=== PATIENT | male | born 1965 | race American Indian/Alaskan Native ===

== ENCOUNTER 2017-06-06 11:24 | Day surgery (SDC) | payer MEDICARE, OTHER ==
[~2017-06-06 11:24] MED LIST: FLAGYL 500 MG/100 ML 500 MG/100 ML BAG IV SCH; OMNIPAQUE 300 MG/50 ML (CATH LAB) IV ONE; WATER FOR IRRIG STERILE IR ONE
--- NOTE | 2017-06-06 12:57 | Anesthesia Day of Surgery ---
Anesthesia Day of Surgery - Day of Surgery Patient Examined: Yes Patient H&P Reviewed: Yes Patient is NPO: Yes
--- NOTE | 2017-06-06 12:57 | Anesthesia Consultation ---
Anesthesia Consult and Med Hx Date of service: 06/06/17 - Airway Anesthetic Teeth Evaluation: Good ROM Head & Neck: Adequate Mental/Hyoid Distance: Adequate Mallampati Class: Class II Intubation Access Assessment: Probably Good - Pulmonary Exam CTA: Yes - Cardiac Exam Cardiac Exam: RRR - Pre-Operative Health Status ASA Pre-Surgery Classification: ASA2 Proposed Anesthetic Plan: General - Pulmonary Hx Smoking: No Hx Sleep Apnea: Yes (DX SLEEP APNEA WITH CPAP USE.) - Cardiovascular System Hx Hypertension: No - Central Nervous System Hx Back Pain: Yes (on pain meds) Hx Psychiatric Problems: Yes (PTSD) - Endocrine Hx Renal Disease: No Hx Liver Disease: No Hx Non-Insulin Dependent Diabetes: No - Hematic Hx Anemia: No Hx Sickle Cell Disease: No - Other Systems Hx Cancer: No Hx Obesity: Yes - Additional Comments Anesthesia Medical History Comments: NAC
[2017-06-06] MEDS ORDERED: LACTATED RINGERS 1,000 ML IV SCH (13:00)
[2017-06-06] MEDS ORDERED: PEPCID PO NR (13:00)
[2017-06-06] MEDS ORDERED: VERSED IV NR (13:00)
[2017-06-06] MEDS ORDERED: XYLOCAINE MPF 2% ONE (14:00)
[2017-06-06] MEDS ORDERED: NEO SYNEPHRINE/NS Syringe(OR USE) IV ONE (14:00)
[2017-06-06] MEDS ORDERED: SUBLIMAZE ONE (14:05)
[2017-06-06] MEDS ORDERED: DIPRIVAN 10 MG/ML IV ONE (14:06)
[2017-06-06] MEDS ORDERED: PROAIR IH ONE (14:20)
[2017-06-06] MEDS ORDERED: ZOFRAN ONE (14:22)
[2017-06-06] MEDS ORDERED: DECADRON ONE (14:22)
[2017-06-06] MEDS ORDERED: WATER FOR IRRIG STERILE IR ONE (14:26)
[2017-06-06] MEDS ORDERED: OMNIPAQUE 300 MG/50 ML (CATH LAB) IV ONE (14:31)
[2017-06-06] MEDS ORDERED: ROBINUL ONE (14:34)
--- NOTE | 2017-06-06 14:46 | Short Stay Summary ---
Short Stay Documentation Date of service: 06/06/17 - History H&P: obtained from office - Allergies and Medications Current Medications: Allergies amoxicillin Allergy (Verified 06/01/17 13:16) Vomiting Home Medications Medication Instructions Recorded Confirmed Last Taken Type Aspirin/Acetaminophen/Caffeine 1 dose PO PRN PRN 06/01/17 06/01/17 Unknown History [[employer] Ex-Str Powder Packet] Gabapentin [Neurontin] 300 mg PO BID 06/01/17 06/01/17 Unknown History Meloxicam [Mobic] 15 mg PO DAILY 06/01/17 06/01/17 Unknown History oxyCODONE /ACETAMINOPHEN [Percocet 1 tab PO Q6HR PRN 06/01/17 06/01/17 Unknown History 5/325] Active Medications Famotidine (Pepcid) 20 mg PO PREOP NR Stop: 06/06/17 23:59 Last Admin: 06/06/17 13:30 Dose: 20 mg Metronidazole (Flagyl 500 Mg/100 Ml) 500 mg in 100 mls @ 100 mls/hr IV PREOP PATIENCE Stop: 06/06/17 15:00 Lactated Ringer's (Lactated Ringers) 1,000 mls @ 100 mls/hr IV DIRECT PATIENCE Last Admin: 06/06/17 13:30 Dose: 100 mls/hr Midazolam HCl (Versed) 2 mg IV PREOP NR Stop: 06/06/17 23:59 Last Admin: 06/06/17 13:30 Dose: 2 mg - Brief post op/procedure progress note Date of procedure: 06/06/17 Pre-op diagnosis: elevated psa 5, hematuria Procedure: cysto, rpg, pus 40cc , bx Anesthesia: GETA Surgeon: CLEVELAND TELLEZ Estimated blood loss: minimal Pathology: list (prostate cores x 12) Specimen disposition: to lab Condition: stable - Hospital course Hospital course: cipro, norco, post op info on chart - Disposition Condition at discharge: Stable Disposition: - TO HOME OR SELFCARE Short Stay Discharge Plan Follow up with: DR MITCH [Other] - 7 Days
--- NOTE | 2017-06-06 14:58 | Post Anesthesia Evaluation ---
- Post Anesthesia Evaluation Patient Participated: Yes Airway Patent: Yes Stable Respiratory Function: Yes Nausea/Vomiting: No Temp > 96.8F: Yes Pain Manageable: Yes Adequeate Hydration: Yes Anesthesia Complications: No Block Receding Appropriately: Not Applicable Patient on Ventilator: No
[2017-06-06] MEDS ORDERED: DILAUDID IV PRN (15:21)
--- NOTE | 2017-06-06 16:14 | Ultrasound Report ---
Ultrasound guided prostate biopsy. Procedure: The biopsy was performed by Dr. Martinez. Ultrasound guidance was provided in the OR.
--- NOTE | 2017-06-06 16:36 | Operative Report ---
PREOPERATIVE DIAGNOSES: Elevated PSA of 5, hematuria. POSTOPERATIVE DIAGNOSES: Elevated PSA of 5, hematuria. PROCEDURE: Cystoscopy, bilateral retrograde pyelograms, transrectal ultrasound and biopsy of prostate (40 mL). SURGEON: Jacky Martinez MD ANESTHESIA: General. ESTIMATED BLOOD LOSS: Minimal. FLUIDS: Crystalloid. COMPLICATIONS: No complications. INDICATIONS: This patient is a 52-year-old who presented to the office with an elevated PSA of 5. Repeat PSA was 5 as well, presents now for intervention. Also, had a history of hematuria. DESCRIPTION OF PROCEDURE: The patient was taken to the operative suite, placed in a supine position. After adequate general anesthesia, placed in a dorsal lithotomy position, prepped and draped in a sterile fashion. Pancystourethroscopy was performed with 22 Kosovan Storz cystoscope, no acute urethral abnormalities. His prostate was minimally obstructing, does have moderate size median lobe. Bladder, no tumors or stones were noted. Both ureteral orifices in normal position. Bilateral retrograde pyelograms were obtained with an 8 Kosovan [place] catheter and 8 mL of contrast. No filling defects or obstruction. Next, using an ultrasound probe, transrectal ultrasound of the prostate was performed. Sagittal and transverse images were taken, total volume of 40 mL. A 12 core biopsy was performed at the base, mid, and apex of the prostate. No suspicious lesions could be appreciated. The patient tolerated the procedure, was extubated and taken to recovery room. He will go home on R[employer] and [employer] and follow up in the office. JOB# [id number] Afshin/WAQAS
[2017-06-06 18:02] VITALS: BP 152/83
--- NOTE | 2017-06-07 11:28 | Fluoroscopy Report ---
RETROGRADE PYELOGRAM: History: Elevated PSA for transrectal prostate biopsy. There is adequate filling of the ureters and intrarenal collecting systems with no filling defects or anatomic abnormalities identified.
== END 2017-06-06 16:28 | disposition home or self-care (01) ==
LOC: OR 11:24
PROVIDERS: ATTEND Urology
DX: R97.20 Elevated prostate specific antigen [PSA] (principal); R31.9 Hematuria, unspecified; M54.9 Dorsalgia, unspecified; M25.579 Pain in unspecified ankle and joints of unspecified foot; G89.29 Other chronic pain; F32.9 Major depressive disorder, single episode, unspecified; G47.33 Obstructive sleep apnea (adult) (pediatric); E66.9 Obesity, unspecified; F43.10 Post-traumatic stress disorder, unspecified; Z68.36 Body mass index [BMI] 36.0-36.9, adult; Z99.89 Dependence on other enabling machines and devices; Z80.9 Family history of malignant neoplasm, unspecified; Z82.49 Family history of ischemic heart disease and other diseases of the circulatory system; Z79.82 Long term (current) use of aspirin; Z88.1 Allergy status to other antibiotic agents
CPT/HCPCS: 55700; 74420; 76998; 88305; 88307; A4217; C1758; J1100; J1170; J2250; J2370; J2405; J2704; J3010; J7120; Q9967; 88342

== ENCOUNTER 2021-10-31 06:12 | Day surgery (SDC) | payer MEDICARE, OTHER ==
[~2021-10-31 06:12] MED LIST changes: -FLAGYL 500 MG/100 ML 500 MG/100 ML BAG IV SCH; +LACTATED RINGERS 1,000 ML IV SCH; +MIDAZOLAM 2 MG/2 ML INJ IV NR; -OMNIPAQUE 300 MG/50 ML (CATH LAB) IV ONE; -WATER FOR IRRIG STERILE IR ONE
[2021-10-31] MEDS ORDERED: fentaNYL 100 MCG/2 ML INJ ONE (07:18)
[2021-10-31] MEDS ORDERED: propofoL 200 MG/20 ML VIAL IV ONE (07:18)
[2021-10-31] MEDS ORDERED: LIDOCAINE MPF (2%) 20 MG/1 ML VIAL 5 ML ONE (07:18)
[2021-10-31] MEDS ORDERED: HYDROcodone/ACETAMINOPHEN 5-325 MG TAB PO PRN (07:27)
[2021-10-31] MEDS ORDERED: fentaNYL 100 MCG/2 ML INJ IV PRN (07:27)
--- NOTE | 2021-10-31 07:27 | Anesthesia Day of Surgery ---
Anesthesia Day of Surgery - Day of Surgery Patient Examined: Yes Patient H&P Reviewed: Yes Patient is NPO: Yes
--- NOTE | 2021-10-31 07:27 | Anesthesia Consultation ---
Anesthesia Consult and Med Hx Date of service: 10/31/21 - Airway Anesthetic Teeth Evaluation: Good, Partials (upper) ROM Head & Neck: Adequate Mental/Hyoid Distance: Adequate Mallampati Class: Class II Intubation Access Assessment: Probably Good - Pre-Operative Health Status ASA Pre-Surgery Classification: ASA2 Proposed Anesthetic Plan: General - Pulmonary Hx Smoking: No Hx Respiratory Symptoms: No Hx Sleep Apnea: Yes (+ CPAP) - Cardiovascular System Hx Hypertension: No Hx Heart Attack/AMI: No - Central Nervous System CVA: No Hx Back Pain: Yes (chronic back pain w/ b/l leg weakness) Hx Psychiatric Problems: Yes (PTSD) - Endocrine Hx Renal Disease: No Hx Liver Disease: No Hx Insulin Dependent Diabetes: No Hx Non-Insulin Dependent Diabetes: No Hx Thyroid Disease: No - Other Systems Hx Obesity: Yes (BMI 34) - Additional Comments Anesthesia Medical History Comments: No hx anesthetic complications.
[2021-10-31] MEDS ORDERED: GENTAMICIN/NS 80 MG/100 ML 100 ML IV ONE (07:52)
[2021-10-31] MEDS ORDERED: ePHEDrine SULFATE 50 MG/1 ML INJ ONE (08:29)
[2021-10-31] MEDS ORDERED: WATER FOR IRRIG STERILE 2000 ML IR ONE (08:45)
[2021-10-31] MEDS ORDERED: dexAMETHasone 20 MG/5 ML VIAL ONE (09:15)
[2021-10-31] MEDS ORDERED: ONDANSETRON 4 MG/2 ML INJ ONE (09:15)
--- NOTE | 2021-10-31 09:49 | Operative Report ---
DATE OF SURGERY: 10/31/2021 PREOPERATIVE DIAGNOSES: Prostate cancer, elevated PSA of 5.8. POSTOPERATIVE DIAGNOSES: Prostate cancer, elevated PSA of 5.8. PROCEDURES: Cystoscopy, bilateral retrograde pyelograms, transrectal ultrasound, biopsy of prostate (restaging). SURGEON: Jacky Martinez MD ANESTHESIA: General. ESTIMATED BLOOD LOSS: Minimal. FLUIDS: Crystalloid. COMPLICATIONS: No complications. INDICATIONS: This patient is a 56-year-old gentleman who has been followed since 2017 with a diagnosis of prostate cancer, Ellen 6 in 2 of 12 cores. He opted for observation. He presents now for restaging. His PSA was 5.3. Risks, benefits, complications were explained. DESCRIPTION OF PROCEDURE: The patient was taken to the operative suite, placed in a supine position. After adequate general anesthesia, placed in the dorsal lithotomy position, prepped and draped in a sterile fashion. Pancystourethroscopy was performed with a 22-Bangladeshi Storz cystoscope. The patient had mild bulbar stricture. A 22-Bangladeshi scope traversed without difficulty. Prostate minimally obstructing. Bladder, no tumors or stones were noted. Both ureteral orifices in normal position. Bilateral retrograde pyelograms were obtained with an 8-Bangladeshi [place] catheter and 8 mL of contrast. No filling defects or obstruction. Next, using a transrectal ultrasound, sagittal and transverse imaging was taken. No obvious lesions. Prostate volume was 50 mL. A 12-core template biopsy, 4 cores at the base, mid and apex of the prostate. He was extubated. Rectal exam was benign. He was taken to the recovery room in stable condition. He will go home on Bactrim and [place]. TID: [id number] RECEIPT: [id number] [facility]
--- NOTE | 2021-10-31 09:58 | Ultrasound Report ---
Ultrasound transrectal HISTORY: Elevated PSA, guidance for prostate biopsy TECHNIQUE: Transrectal ultrasound FINDINGS: Transrectal ultrasound guidance was provided by radiology during prostate biopsy by urology . The prostate gland measures 51.3 cc in volume. IMPRESSION: Successful prostate biopsy under transrectal ultrasound guidance. Signer Name: Gianluca Bee Jr, MD Signed: 10/31/2021 9:54 AM Workstation Name: [id number]
--- NOTE | 2021-10-31 10:14 | Post Anesthesia Evaluation ---
- Post Anesthesia Evaluation Patient Participated: Yes Airway Patent: Yes Stable Respiratory Function: Yes Nausea/Vomiting: No Temp > 96.8F: Yes Pain Manageable: Yes Adequeate Hydration: Yes Anesthesia Complications: No
--- NOTE | 2021-10-31 12:25 | Fluoroscopy Report ---
INTRAOPERATIVE FLUOROSCOPY: CYSTOSCOPY AND RETROGRADE UROGRAPHY INDICATION / CLINICAL INFORMATION: STONE MANIPULATION. TECHNIQUE: Intraoperative spot images were obtained during the procedure. FINDINGS: Intraoperative spot images show contrast injection into the ureters and collecting system. There is s ome motion artifact obscuring the renal collecting systems bilaterally. No filling defects are identi fied within the limits of this exam. Fluoroscopy Time: 4 seconds. Fluoroscopy Images: 4. Signer Name: Bradley Sherwood MD Signed: 10/31/2021 12:21 PM Workstation Name: [id number]
[2021-10-31 16:54] VITALS: BP 118/73
== END 2021-10-31 10:15 | disposition home or self-care (01) ==
LOC: OR 06:12
PROVIDERS: ATTEND Urology
DX: C61 Malignant neoplasm of prostate (principal); N40.0 Benign prostatic hyperplasia without lower urinary tract symptoms; R97.20 Elevated prostate specific antigen [PSA]; G43.909 Migraine, unspecified, not intractable, without status migrainosus; G47.30 Sleep apnea, unspecified; E66.9 Obesity, unspecified; F32.9 Major depressive disorder, single episode, unspecified; F41.9 Anxiety disorder, unspecified; Z88.6 Allergy status to analgesic agent; Z88.8 Allergy status to other drugs, medicaments and biological substances; Z79.899 Other long term (current) drug therapy; Z98.890 Other specified postprocedural states; Z68.34 Body mass index [BMI] 34.0-34.9, adult
CPT/HCPCS: 52005; 55700; 74420; 76872; 88305; C1758; J1100; J1580; J2250; J2405; J2704; J3010; J3490; J7120; Q9967; 88344